=== PATIENT | female | born 1985 | race Caucasian/White ===

== ENCOUNTER 2023-10-06 16:02 | Emergency (ER) | payer OTHER | END 2023-10-06 18:15 | LOC: JD.ED 16:02 | DX: S93.401A Sprain of unspecified ligament of right ankle, initial encounter (principal); Z87.891 Personal history of nicotine dependence; Z86.16 Personal history of COVID-19; Z88.5 Allergy status to narcotic agent; Z88.6 Allergy status to analgesic agent; X50.1XXA Overexertion from prolonged static or awkward postures, initial encounter | CPT/HCPCS: 73610-26-RT; 73610-RT; 99282; 99283 ==